=== PATIENT | male | born 1975 | race African-American/Black ===

== ENCOUNTER 2017-12-13 11:16 | Inpatient (IN) ==
[2017-12-13] MEDS ORDERED: ONDANSETRON 4 MG/2 ML VIAL ONE (12:28)
[2017-12-13] MEDS ORDERED: SODIUM CHLORIDE 0.9% 1,000 ML IV STA (12:36)
[2017-12-13] MEDS ORDERED: ALUM/MAG/SIMETH/LIDO VISC 1:1 30 ML BOTTLE PO STA (12:36)
[2017-12-13 12:45] LABS: Basophils % 0.3 % (0.0-0.8); Hematocrit 42.2 VOL% (42.0-52.0); Hemoglobin 13.9 GM/DL (14.0-18.0); Immature Granulocytes % 0.4 %; Immature Granulocytes Absolute 0.04 #; Lymphocytes # 1.1 10*3/uL (1.4-4.0); Lymphocytes % 11.4 % (21.2-54.2); Mean Corpuscular HGB Conc 32.9 GM/DL (32-36); Mean Corpuscular Hemoglobin 29 PG (27-34); Mean Corpuscular Volume 89.2 FL (87-102); Mean Platelet Volume 11.5 FL (9.6-12.0); Monocytes % 10.3 % (1.7-12.7); Neutrophils # 7.4 10*3/uL (1.4-7.4); Neutrophils % 77.6 % (38.7-73.9); Platelet Count 255 T/CUMM (130-400); Red Blood Count 4.73 MC/CUMM (3.8-5.5); Red Cell Distribution Width 13.1 % (9.3-17.3); White Blood Count 9.5 T/CUMM (4-12)
[2017-12-13 12:53] LABS: PT Patient Result 10.3 SECS; Partial Thromboplastin Time 27.1 SECS (0-40)
[2017-12-13 12:58] LABS: Alanine Aminotransferase 22 U/L (16-61); Albumin 4.4 G/DL (3.4-5.0); Alkaline Phosphatase 112 U/L (45-117); Amylase 45 U/L (25-115); Aspartate Amino Transferase 22 U/L (0-37); Blood Urea Nitrogen 22 MG/DL (7-18); Calcium 9.5 MG/DL (8.5-10.1); Osmolality,Calculated 287.8 MOS/KG (273-304); Potassium 5.2 MMOL/L (3.5-5.1); Sodium 130 MMOL/L (136-145); Total Protein 8.3 G/DL (6.4-8.3); Troponin I < 0.015 NG/ML (0.00-0.045)
[2017-12-13 13:00] LABS: Glucose 548 MG/DL (74-106)
[2017-12-13] MEDS ORDERED: INSULIN REGULAR 100 UNIT/ML IV STA (13:01)
[2017-12-13 13:32] LABS: Apearance,Urine CLEAR (Clear); Bilirubin,Urine Negative (Negative); Blood, Urine Small mg/dL (Negative); Glucose,Urine (UA) >=500 mg/dL (Negative); Ketones,Urine 80 mg/dL (Negative); Nitrite,Urine Negative (Negative); Protein,Urine Negative; Urine Color Colorless (Yellow); Urine Specific Gravity 1.022 (1.001-1.035); Urine Urobilinogen < 2.0 EU/DL (0.2-1.0); WBC,Urine <1 /HPF (0-6)
[2017-12-13 13:52] LABS: ABG Base Excess -15.9 MMOL/L (-2.5-2.5); ABG HCO3 12.6 MMOL/L (20-26); ABG Oxygen Saturation 94.1 % (95-100); ABG PCO2 31.6 MM HG (35-48); ABG PO2 99.2 MM HG (80-95); ABG TCO2 10.7 MMOL/L (23-27); Allen Test Positive
[2017-12-13 13:54] LABS: ABG PH 7.181 (7.35-7.45)
[2017-12-13] MEDS ORDERED: DEXTROSE 50% 25 GM/50 ML VIAL IV PRN (14:46)
[2017-12-13] MEDS ORDERED: GLUCAGON 1 MG VIAL IM PRN (14:46)
[2017-12-13] MEDS ORDERED: ONDANSETRON 4 MG/2 ML VIAL IV PRN (14:46)
[2017-12-13] MEDS ORDERED: INSULIN REGULAR DRIP 100 ML IV PRN (14:53)
[2017-12-13] MEDS ORDERED: PANTOPRAZOLE 40 MG TABLET PO SCH (15:00)
[2017-12-13] MEDS: SODIUM CHLOR 0.9% KCL 20 MEQ 20 MEQ/1,000 ML BAG IV SCH ×2 (16:12→20:52)
[2017-12-13] MEDS: ENOXAPARIN 40 MG/0.4 ML SYRINGE SUBCUT SCH (16:49)
[2017-12-13 18:27] LABS: Calcium 8.7 MG/DL (8.5-10.1); Osmolality,Calculated 284.2 MOS/KG (273-304); Potassium 5.6 MMOL/L (3.5-5.1)
[2017-12-13 21:23] LABS: Calcium 8.3 MG/DL (8.5-10.1); Osmolality,Calculated 279.7 MOS/KG (273-304); Potassium 4.6 MMOL/L (3.5-5.1)
[2017-12-13] MEDS: DEXT 5% NACL 0.9% KCL 20 MEQ 20 MEQ/1,000 ML BAG IV SCH (21:38)
[2017-12-13] MEDS: PANTOPRAZOLE 40 MG VIAL IV SCH (22:48)
[2017-12-14] MEDS: DEXT 5% NACL 0.9% KCL 20 MEQ 20 MEQ/1,000 ML BAG IV SCH ×3 (02:20→11:24)
[2017-12-14 02:43] LABS: Calcium 8.5 MG/DL (8.5-10.1); Osmolality,Calculated 280.3 MOS/KG (273-304)
[2017-12-14 02:44] LABS: Potassium 4.5 MMOL/L (3.5-5.1)
[2017-12-14 06:43] LABS: Osmolality,Calculated 285.4 MOS/KG (273-304)
[2017-12-14] MEDS: PANTOPRAZOLE 40 MG VIAL IV SCH ×2 (09:28→20:10)
[2017-12-14 10:00] LABS: Calcium 8.6 MG/DL (8.5-10.1); Osmolality,Calculated 281.3 MOS/KG (273-304); Potassium 4.5 MMOL/L (3.5-5.1)
[2017-12-14] MEDS ORDERED: DEXTROSE 50% 25 GM/50 ML VIAL IV PRN (11:30)
[2017-12-14] MEDS ORDERED: GLUCAGON 1 MG VIAL IM PRN (11:30)
[2017-12-14] MEDS: INSULIN GLARGINE 100 UNIT/ML SUBCUT SCH (14:13)
[2017-12-14] MEDS: INSULIN LISPRO 100 UNIT/ML SUBCUT SCH ×2 (14:13→17:14)
[2017-12-14] MEDS ORDERED: PHENOL 1.4% THROAT SPRAY 177 ML BOTTLE PO PRN (16:54)
[2017-12-14] MEDS ORDERED: ACETAMINOPHEN 325 MG TABLET PO PRN (16:54)
[2017-12-14] MEDS: ENOXAPARIN 40 MG/0.4 ML SYRINGE SUBCUT SCH (17:14)
[2017-12-15 07:17] LABS: Calcium 8.1 MG/DL (8.5-10.1); Osmolality,Calculated 280.1 MOS/KG (273-304); Potassium 3.8 MMOL/L (3.5-5.1)
[2017-12-15] MEDS: PANTOPRAZOLE 40 MG VIAL IV SCH (09:19)
[2017-12-15] MEDS: INSULIN LISPRO 100 UNIT/ML SUBCUT SCH ×2 (09:20→12:16)
[2017-12-15] MEDS: INSULIN GLARGINE 100 UNIT/ML SUBCUT SCH (09:20)
[2017-12-15 15:02] VITALS: BP 149/75
== END 2017-12-15 13:26 | disposition home or self-care (01) | DRG 638 ==
LOC: N.ED 11:16 → SUATTDRO 14:46 → N.EDINP 14:46 → N.ICU 16:00 → N.5E 12-14 17:53
PROVIDERS: ADMIT Hospitalist; ATTEND Internal Medicine Geriatric Medicine

== ENCOUNTER 2021-03-17 17:46 | Inpatient (IN) ==
[2021-03-17] MEDS ORDERED: SODIUM CHLORIDE 0.9% 1,000 ML IV STA ×2 (20:29→22:59)
[2021-03-17] MEDS ORDERED: ONDANSETRON 4 MG/2 ML VIAL IV STA (20:30)
[2021-03-17 20:41] LABS: Basophils % 0.5 % (0.0-0.8); Eosinophils % 0.3 % (0.00-10.9); Hematocrit 43.7 VOL% (42.0-52.0); Hemoglobin 13.9 GM/DL (14.0-18.0); Immature Granulocytes % 0.4 %; Immature Granulocytes Absolute 0.03 #; Lymphocytes # 1.9 10*3/uL (1.4-4.0); Lymphocytes % 24.4 % (21.2-54.2); Mean Corpuscular HGB Conc 31.8 GM/DL (32-36); Mean Corpuscular Volume 88.3 FL (87-102); Mean Platelet Volume 10.3 FL (9.6-12.0); Monocytes % 14.7 % (1.7-12.7); Neutrophils % 59.7 % (38.7-73.9); Platelet Count 287 T/CUMM (130-400); Red Blood Count 4.95 MC/CUMM (3.8-5.5); Red Cell Distribution Width 13.4 % (9.3-17.3)
[2021-03-17 20:44] LABS: Bilirubin,Urine Negative (Negative); Blood, Urine Negative (Negative); Glucose,Urine (UA) >=500 mg/dL (Negative); Hyaline Casts,Urine 31 /LPF (0-3); Ketones,Urine 80 mg/dL (Negative); Mucus,Urine Occasional /LPF (Occasional); Nitrite,Urine Negative (Negative); Protein,Urine 30 MG/DL; RBC,Urine 1 /HPF (0-4); Squamous Epithelial Cell,Urine Occasional /HPF (0-10); Urine Appearance CLEAR (Clear); Urine Color Yellow (Yellow); Urine Specific Gravity 1.023 (1.001-1.035)
[2021-03-17 20:52] LABS: ABG Base Excess -8.7 MMOL/L (-2.5-2.5); ABG HCO3 16.7 MMOL/L (20-26); ABG Oxygen Saturation 95.6 % (95-100); ABG PCO2 34.5 MM HG (35-48); ABG PH 7.302 (7.35-7.45); ABG PO2 84.1 MM HG (80-95); ABG TCO2 17.7 MMOL/L (23-27)
[2021-03-17] MEDS ORDERED: INSULIN REGULAR 100 UNIT/ML IV STA (21:10)
[2021-03-17 21:36] LABS: Albumin 4.2 G/DL (3.4-5.0); Bilirubin,Total 0.8 MG/DL (0.20-1.00); Calcium 9.7 MG/DL (8.5-10.1); Osmolality,Calculated 279.4 MOS/KG (273-304); Potassium 5.1 MMOL/L (3.5-5.1); Total Protein 7.8 G/DL (6.4-8.2)
[2021-03-17] MEDS ORDERED: GLUCAGON 1 MG VIAL IM PRN (23:00)
[2021-03-17] MEDS ORDERED: ONDANSETRON 4 MG/2 ML VIAL IV PRN (23:00)
[2021-03-17] MEDS ORDERED: ACETAMINOPHEN 325 MG TABLET PO PRN (23:00)
[2021-03-17] MEDS ORDERED: DEXTROSE 50% 25 GM/50 ML SYRINGE IV PRN (23:00)
[2021-03-17] MEDS: ENOXAPARIN 30 MG/0.3 ML SYRINGE SUBCUT SCH (23:28)
[2021-03-17] MEDS ORDERED: INSULIN GLARGINE 100 UNIT/ML SUBCUT SCH (23:30)
[2021-03-17] MEDS ORDERED: INSULIN REGULAR 100 UNIT/ML SUBCUT STA (23:48)
[2021-03-18] MEDS: SODIUM CHLORIDE 0.9% 1,000 ML IV SCH ×4 (01:26→22:12)
[2021-03-18 05:20] LABS: Basophils % 0.5 % (0.0-0.8); Eosinophils % 0.3 % (0.00-10.9); Hemoglobin 13.1 GM/DL (14.0-18.0); Immature Granulocytes % 0.3 %; Immature Granulocytes Absolute 0.02 #; Lymphocytes # 1.9 10*3/uL (1.4-4.0); Lymphocytes % 30.8 % (21.2-54.2); Mean Corpuscular Volume 89.1 FL (87-102); Mean Platelet Volume 9.7 FL (9.6-12.0); Monocytes % 13.3 % (1.7-12.7); Neutrophils % 54.8 % (38.7-73.9); Platelet Count 243 T/CUMM (130-400); Red Cell Distribution Width 13.7 % (9.3-17.3)
[2021-03-18 05:42] LABS: Osmolality,Calculated 279.2 MOS/KG (273-304); Potassium 4.7 MMOL/L (3.5-5.1)
[2021-03-18 06:01] LABS: Anisocytosis 1+; Macrocytosis Slight; Platelet Estimate Normal
[2021-03-18] MEDS: PANTOPRAZOLE 40 MG TABLET PO SCH (08:24)
[2021-03-18] MEDS: amLODIPine 10 MG TABLET PO SCH (08:24)
[2021-03-18] MEDS: INSULIN REGULAR 100 UNIT/ML SUBCUT SCH ×4 (08:25→21:47)
[2021-03-18] MEDS: INSULIN LISPRO 100 UNIT/ML SUBCUT SCH ×4 (08:25→21:46)
[2021-03-18] MEDS ORDERED: ACETAMINOPHEN 325 MG TABLET PO PRN (10:13)
[2021-03-18] MEDS ORDERED: ACETAMINOPHEN 500 MG TABLET PO ONE (10:13)
[2021-03-18] MEDS ORDERED: INSULIN GLARGINE 100 UNIT/ML SUBCUT SCH (21:00)
[2021-03-18] MEDS: ENOXAPARIN 30 MG/0.3 ML SYRINGE SUBCUT SCH (22:12)
[2021-03-19] MEDS: SODIUM CHLORIDE 0.9% 1,000 ML IV SCH ×2 (05:13→13:18)
[2021-03-19 06:35] LABS: Basophils % 0.6 % (0.0-0.8); Eosinophils % 0.9 % (0.00-10.9); Hematocrit 40.6 VOL% (42.0-52.0); Hemoglobin 12.8 GM/DL (14.0-18.0); Immature Granulocytes % 0.3 %; Immature Granulocytes Absolute 0.01 #; Lymphocytes # 1.4 10*3/uL (1.4-4.0); Lymphocytes % 42.1 % (21.2-54.2); Mean Corpuscular HGB Conc 31.5 GM/DL (32-36); Mean Corpuscular Volume 88.6 FL (87-102); Mean Platelet Volume 10.1 FL (9.6-12.0); Monocytes % 12.5 % (1.7-12.7); Neutrophils % 43.6 % (38.7-73.9); Platelet Count 221 T/CUMM (130-400); Red Blood Count 4.58 MC/CUMM (3.8-5.5); Red Cell Distribution Width 13.4 % (9.3-17.3); White Blood Count 3.3 T/CUMM (4-12)
[2021-03-19 06:42] LABS: Calcium 8.3 MG/DL (8.5-10.1); Osmolality,Calculated 282.4 MOS/KG (273-304)
[2021-03-19] MEDS: INSULIN REGULAR 100 UNIT/ML SUBCUT SCH ×2 (08:41→13:17)
[2021-03-19] MEDS: amLODIPine 10 MG TABLET PO SCH (08:41)
[2021-03-19] MEDS: INSULIN LISPRO 100 UNIT/ML SUBCUT SCH ×2 (08:41→13:18)
[2021-03-19] MEDS: PANTOPRAZOLE 40 MG TABLET PO SCH (08:41)
[2021-03-19] MEDS ORDERED: INSULIN LISPRO 100 UNIT/ML SUBCUT ONE (10:01)
[2021-03-19 12:36] VITALS: BP 152/86
== END 2021-03-19 12:30 | disposition home or self-care (01) | DRG 638 ==
LOC: N.ED 17:46 → SUATTDRO 23:00 → N.EDINP 23:00 → N.5E 03-18 02:26
PROVIDERS: ADMIT Phlebology; ATTEND Internal Medicine